=== PATIENT | male | born 1980 | race African-American/Black ===

== ENCOUNTER 2022-07-17 18:36 | Emergency (ER) | payer MEDICAID, OTHER | END 2022-07-17 20:42 | disposition left against medical advice (07) | LOC: ER 18:40 | DX: R10.9 Unspecified abdominal pain (principal); Z53.21 Procedure and treatment not carried out due to patient leaving prior to being seen by health care provider ==

== ENCOUNTER 2022-08-16 20:01 | Emergency (ER) | payer MEDICAID ==
[~2022-08-16] VITALS: Ht 172.7 cm; Wt 69.2 kg
[2022-08-17] MEDS ORDERED: IBUP800T27 PO (00:28)
[2022-08-17] MEDS ORDERED: ACET-1079 PO (00:28)
[2022-08-17] MEDS ORDERED: IBUPROFEN 800 MG TAB PO ONE (00:30)
[2022-08-17] MEDS ORDERED: ACETAMINOPHEN 325 MG TAB PO ONE (00:30)
[2022-08-17 01:30] VITALS: BP 128/65
== END 2022-08-17 01:31 | disposition home or self-care (01) ==
LOC: ER 20:01
DX: G43.909 Migraine, unspecified, not intractable, without status migrainosus (principal)